=== PATIENT | male | born 1965 | race Caucasian/White ===

== ENCOUNTER 2021-01-18 07:10 | Inpatient (IN) | payer BC, SELFPAY ==
[2021-01-18] MEDS ORDERED: Ondansetron PF 4 MG/2 ML Vial IVP PRN (07:40)
[2021-01-18] MEDS ORDERED: Ondansetron ODT 4 MG TAB PO PRN (07:40)
[2021-01-18] MEDS ORDERED: Acetaminophen 325 MG TAB PO PRN (07:40)
[2021-01-18] MEDS: Dexamethasone 4 MG TAB PO SCH (08:53)
[2021-01-18] MEDS: Enoxaparin Sodium 40 MG/0.4 ML SYRINGE SC SCH (08:53)
[2021-01-18 10:04] VITALS: BMI 32.5
[2021-01-18] MEDS: guaiFENesin ER 600 MG TAB PO SCH (21:50)
[2021-01-19 07:08] LABS: ALT (SGPT) 35 U/L (8-55); AST (SGOT) 53 U/L (5-34); Albumin 3.6 g/dL (3.5-5.0); Alkaline Phosphatase 58 U/L (40-110); Anion Gap 12 mmol/L (10-20); BUN (Urea Nitrogen) 9 mg/dL (8.4-25.7); Bilirubin, Total 0.5 mg/dL (0.2-1.2); CK (CPK) 967 U/L (30-200); Calc. Creatinine Clearance 156 mL/min (70-130); Calcium 8.6 mg/dL (7.8-10.44); Carbon Dioxide 24 mmol/L (22-29); Chloride 103 mmol/L (98-107); Globulin 2.4 g/dL (2.4-3.5); Glucose 131 mg/dL (70-105); Potassium 4.5 mmol/L (3.5-5.1); Sodium 134 mmol/L (136-145)
[2021-01-19 07:14] LABS: Hemoglobin 14.3 g/dL (14.0-18.0); Mean Corpuscular HGB CONC 35.6 g/dL (32.0-36.0); Mean Corpuscular Hemoglobin 32.6 pg (27.0-31.0); Mean Corpuscular Volume 91.7 fL (78.0-98.0); Mean Platelet Volume 6.8 fL (7.4-10.4); Platelet Count 180 thou/uL (130-400); RBC Distribution Width 11.7 % (11.5-14.5); Red Blood Cell (RBC) Count 4.39 mill/uL (4.70-6.10); White Blood Cell (WBC) Count 4.4 thou/uL (4.8-10.8)
[2021-01-19] MEDS ORDERED: Benzonatate 100 MG CAP PO PRN (07:26)
[2021-01-19] MEDS: Dexamethasone 4 MG TAB PO SCH (08:29)
[2021-01-19] MEDS: guaiFENesin ER 600 MG TAB PO SCH ×2 (08:30→19:54)
[2021-01-19] MEDS: Enoxaparin Sodium 40 MG/0.4 ML SYRINGE SC SCH (08:30)
[2021-01-19 09:13] LABS: Band 7 % (5-11); Lymphocytes 15 % (21-51); MDiff Complete? YES; Monocytes 13 % (0-10); Neutrophil 64 % (42-75); Platelet Morphology Comment Appears Adequate; RBC Morphology Normal; Reactive Lymphocytes 1 % (0-10)
[2021-01-20] MEDS: Dexamethasone 4 MG TAB PO SCH (08:29)
[2021-01-20] MEDS: guaiFENesin ER 600 MG TAB PO SCH (08:30)
[2021-01-20] MEDS: Enoxaparin Sodium 40 MG/0.4 ML SYRINGE SC SCH (08:30)
[2021-01-20 11:31] VITALS: TEMP 98.6
[2021-01-20 18:35] VITALS: BP 118/78
== END 2021-01-20 18:24 | disposition home or self-care (01) | DRG 177 ==
LOC: T4-A 07:10
PROVIDERS: ADMIT Family Medicine; ATTEND Family Medicine
PROC: 8E0ZXY6 Isolation (ICD-10-PCS; principal; 2021-01-18)
DX: U07.1 COVID-19 (principal); J12.82 Pneumonia due to coronavirus disease 2019; J96.01 Acute respiratory failure with hypoxia; E66.9 Obesity, unspecified; Z68.32 Body mass index [BMI] 32.0-32.9, adult; Z88.2 Allergy status to sulfonamides; Z98.890 Other specified postprocedural states; F17.290 Nicotine dependence, other tobacco product, uncomplicated
CPT/HCPCS: 36415; 80053; 82550; 83880; 84145; 85025; J1650; J8540